=== PATIENT | male | born 2000 | race Hispanic/Latino ===

== ENCOUNTER 2024-04-11 16:06 | Emergency (ER) | payer MEDICAID, SELFPAY ==
[2024-04-11] MEDS ORDERED: Lorazepam 2 MG/ML VIAL ONE (16:48)
[2024-04-11 18:03] LABS: Hematocrit 49.7 % (42.0-52.0); Hemoglobin 16.4 g/dL (14.0-18.0); Mean Corpuscular Hemoglobin 28.9 pg (27.0-31.0); Mean Corpuscular Volume 87.7 fl (78.0-98.0); Mean Platelet Volume 7.9 fL (7.4-10.4); Platelet Count 290 10x3/uL (130-400); RBC Distribution Width 10.9 % (11.5-14.5); Red Blood Cell (RBC) Count 5.67 mill/uL (4.70-6.10); White Blood Cell (WBC) Count 20.6 10x3/uL (4.8-10.8)
[2024-04-11 18:11] LABS: Lymphocytes 4 % (21-51); MDiff Complete? YES; Monocytes 2 % (0-10); Neutrophil 94 % (42-75); Platelet Adequacy Comment Appears Adequate
[2024-04-11 18:17] LABS: ALT (SGPT) 47 U/L (8-55); AST (SGOT) 27 U/L (5-34); Albumin 4.5 g/dL (3.5-5.0); Alkaline Phosphatase 79 U/L (40-110); Anion Gap 15 mmol/L (10-20); BUN (Urea Nitrogen) 8 mg/dL (8.9-20.6); Bilirubin, Total 0.8 mg/dL (0.2-1.2); Calc. Creatinine Clearance 0 mL/min (70-130); Calcium 9.7 mg/dL (7.8-10.44); Carbon Dioxide 23 mmol/L (22-29); Chloride 103 mmol/L (98-107); Estimated GFR 132; Globulin 3.1 g/dL (2.4-3.5); Glucose 93 mg/dL (70-105); Potassium 3.8 mmol/L (3.5-5.1); Protein, Total 7.6 g/dL (6.0-8.3); Sodium 137 mmol/L (136-145)
[2024-04-11] MEDS ORDERED: Ibuprofen 800 MG TAB ONE (18:23)
[2024-04-11 19:03] LABS: Influenza A by NAA Not Detected (NotDetected); Influenza B by NAA Not Detected (NotDetected); SARS-CoV-2 NAA Rapid Test Not Detected (NotDetected)
[2024-04-11] MEDS ORDERED: Labetalol HCl 100 MG/20 ML VIAL ONE (20:09)
[2024-04-11 20:30] LABS: Bilirubin Negative (Negative); Blood, Urine Negative (Negative); Clarity Clear (Clear); Glucose, Urine (Dipstick) Negative (Negative); Ketone, Urine 15 mg/dL (Negative); Leukocyte Negative (Negative); Nitrite Negative (Negative); Protein, Urine (Dipstick) Negative (Neg-Trace); Urobilinogen 0.2 mg/dL (Less than 2); pH, Urine 5.5 (5.0-9.0)
[2024-04-11] MEDS ORDERED: Hydrocortisone Sod Succ/PF 100 mg/2 ml Vial ONE (20:43)
[2024-04-11] MEDS ORDERED: Methimazole 5 MG TAB PO SCH (20:45)
[2024-04-11 21:20] LABS: Amphetamine Not Detected (NotDetected); Bacteria/HPF None Seen HPF (None Seen); Barbiturates Screen Not Detected (NotDetected); Benzodiazepine Screen Detected (NotDetected); CAUTI Indications for Culture Pelvic or flank pain; Cocaine Metabolite Screen Not Detected (NotDetected); Methadone Not Detected (NotDetected); Methamphetamine Not Detected (NotDetected); Opiate Screen Not Detected (NotDetected); Oxycodone Screen Not Detected (NotDetected); Phencyclidine (PCP) Not Detected (NotDetected); RBC/HPF None Seen HPF (0-3); Squamous Epithelial None Seen HPF (0-3); THC/Cannabinoid Screen Detected (NotDetected); Tricyclic Screen Not Detected (NotDetected); WBC/HPF None Seen HPF (0-3)
[2024-04-11 21:21] LABS: Urine Culture Reflex No No
[2024-04-12 15:06] LABS: Free T4 (Free Thyroxine) 2.34 ng/dL (0.70-1.48)
== END 2024-04-11 21:10 | disposition short-term general hospital (02) ==
LOC: BURERS 16:06
DX: E05.90 Thyrotoxicosis, unspecified without thyrotoxic crisis or storm (principal); F20.9 Schizophrenia, unspecified; R00.0 Tachycardia, unspecified; F17.290 Nicotine dependence, other tobacco product, uncomplicated
CPT/HCPCS: 36415; 71045; 80053; 80306; 81001; 83605; 84439; 84443; 84481; 85025; 87040; 93005; 96361; 96374; 96375; J1720; J2060

== ENCOUNTER 2024-05-06 16:10 | Emergency (ER) | payer SELFPAY ==
[2024-05-06] MEDS ORDERED: Ibuprofen 800 MG TAB ONE (16:50)
== END 2024-05-06 17:19 | disposition home or self-care (01) ==
LOC: BURERS 16:10
DX: J02.9 Acute pharyngitis, unspecified (principal); F17.290 Nicotine dependence, other tobacco product, uncomplicated
CPT/HCPCS: 87081; 87430; 87804; 99283